=== PATIENT | female | born 2005 | race Caucasian/White ===

== ENCOUNTER 2023-02-23 17:21 | Inpatient (IN) | payer BC ==
[2023-02-23 18:05] LABS: Bilirubin Neg (Negative); Blood, Urine Negative (Negative); Clarity Clear (Clear); Glucose, Urine (Dipstick) Normal (Negative); Ketone, Urine Negative (Negative); Leukocyte 500 (Negative); Nitrite Negative (Negative); Protein, Urine (Dipstick) Negative (Neg-Trace); Urobilinogen Normal mg/dL (Less than 2)
[2023-02-23] MEDS ORDERED: Meclizine HCl 25 MG TAB ONE ×2 (18:05→18:56)
[2023-02-23 18:20] LABS: #Eosinphils 0.1 10x3/uL (0.0-0.5); #Monocytes 0.6 10x3/uL (0.0-1.1); #Neutrophils 4.5 10x3/uL (1.5-8.4); %Basophils 0.4 % (0.0-2.0); %Eosinophils 0.9 % (0.0-6.0); %Lymphocytes 35.2 % (18.0-47.0); %Monocytes 7.3 % (0.0-10.0); %Neutrophils 55.8 % (40.0-75.0); Hemoglobin 12.3 g/dL (12.0-15.5); Mean Corpuscular HGB CONC 33.2 g/dL (32.0-36.0); Mean Corpuscular Hemoglobin 25.7 pg (27.0-33.0); Mean Corpuscular Volume 77.4 fl (81.6-98.3); Mean Platelet Volume 10.3 fl (7.4-10.4); Platelet Count 337 10x3/uL (150-450); RBC Distribution Width 13.3 % (11.5-14.5); Red Blood Cell (RBC) Count 4.78 10x6/uL (3.90-5.03); White Blood Cell (WBC) Count 8.1 10x3/uL (3.5-10.5)
[2023-02-23 18:34] LABS: Bacteria/HPF 1+ HPF (None Seen); RBC/HPF 0-3 HPF (0-3)
[2023-02-23 18:42] LABS: ALT (SGPT) 16 U/L (8-55); AST (SGOT) 13 U/L (5-30); Alkaline Phosphatase 72 U/L (40-100); Anion Gap 13 mmol/L (10-20); BUN (Urea Nitrogen) 8 mg/dL (8.4-21.0); Bilirubin, Total 0.5 mg/dL (0.2-1.2); Calc. Creatinine Clearance 0 mL/min (70-130); Calcium 9.3 mg/dL (7.8-10.44); Carbon Dioxide 22 mmol/L (22-29); Chloride 105 mmol/L (98-107); Estimated GFR 123; Globulin 3.3 g/dL (2.4-3.5); Glucose 100 mg/dL (70-105); Lipase 20 U/L (8-78); Potassium 3.8 mmol/L (3.5-5.1); Protein, Total 7.3 g/dL (6.0-8.3); Sodium 136 mmol/L (136-145)
[2023-02-23] MEDS ORDERED: cefTRIAXone (ROCEPHIN) 1 GM VIAL ONE (18:42)
[2023-02-23 23:03] LABS: Magnesium 1.8 mg/dL (1.7-2.2)
[2023-02-23 23:24] VITALS: BMI 40.6
[2023-02-23 23:27] LABS: Troponin I Less than 0.010 ng/mL (< 0.028)
[2023-02-23] MEDS ORDERED: Progesterone,Micronized 100 MG CAP PO SCH (23:30)
[2023-02-24] MEDS ORDERED: NIFEdipine XL 30 MG TAB PO SCH (09:00)
[2023-02-24] MEDS: Prenatal Vitamin 1 TAB PO SCH (09:20)
[2023-02-24] MEDS: Sertraline 25 MG TAB PO SCH (09:21)
[2023-02-24] MEDS: Progesterone,Micronized 100 MG CAP PO SCH ×2 (09:21→20:26)
[2023-02-24] MEDS: Sodium Chloride 0.9% 1,000 ML IV SCH (13:27)
[2023-02-24] MEDS: cefTRIAXone\\ROCEPHIN 1 GM in Sodium Chloride 0.9% 100 ML IVPB SCH (17:48)
[2023-02-25 03:59] LABS: #Eosinphils 0.1 10x3/uL (0.0-0.5); #Monocytes 0.7 10x3/uL (0.0-1.1); #Neutrophils 3.6 10x3/uL (1.5-8.4); %Basophils 0.5 % (0.0-2.0); %Lymphocytes 46.1 % (18.0-47.0); %Monocytes 8.3 % (0.0-10.0); Hemoglobin 11.5 g/dL (12.0-15.5); Mean Corpuscular HGB CONC 32.7 g/dL (32.0-36.0); Mean Corpuscular Hemoglobin 25.8 pg (27.0-33.0); Mean Corpuscular Volume 78.9 fl (81.6-98.3); Mean Platelet Volume 10.3 fl (7.4-10.4); Platelet Count 321 10x3/uL (150-450); RBC Distribution Width 13.3 % (11.5-14.5); Red Blood Cell (RBC) Count 4.46 10x6/uL (3.90-5.03); White Blood Cell (WBC) Count 8.2 10x3/uL (3.5-10.5)
[2023-02-25 04:14] LABS: ALT (SGPT) 16 U/L (8-55); AST (SGOT) 11 U/L (5-30); Albumin 3.7 g/dL (3.5-5.0); Alkaline Phosphatase 72 U/L (40-100); Anion Gap 14 mmol/L (10-20); BUN (Urea Nitrogen) 7 mg/dL (8.4-21.0); Bilirubin, Total 0.4 mg/dL (0.2-1.2); Calc. Creatinine Clearance 173 mL/min (70-130); Calcium 9.2 mg/dL (7.8-10.44); Carbon Dioxide 22 mmol/L (22-29); Chloride 108 mmol/L (98-107); Estimated GFR 112; Glucose 87 mg/dL (70-105); Magnesium 1.8 mg/dL (1.7-2.2); Phosphorus 4.9 mg/dL (2.3-4.7); Potassium 4.5 mmol/L (3.5-5.1); Protein, Total 6.7 g/dL (6.0-8.3); Sodium 139 mmol/L (136-145)
[2023-02-25] MEDS: Sodium Chloride 0.9% 1,000 ML IV SCH ×4 (04:26→23:50)
[2023-02-25] MEDS: Prenatal Vitamin 1 TAB PO SCH (09:36)
[2023-02-25] MEDS: Sertraline 25 MG TAB PO SCH (09:36)
[2023-02-25] MEDS: Progesterone,Micronized 100 MG CAP PO SCH ×2 (09:36→21:25)
[2023-02-25] MEDS: cefTRIAXone\\ROCEPHIN 1 GM in Sodium Chloride 0.9% 100 ML IVPB SCH (18:35)
[2023-02-26 04:55] LABS: #Eosinphils 0.1 10x3/uL (0.0-0.5); #Monocytes 0.6 10x3/uL (0.0-1.1); #Neutrophils 4.1 10x3/uL (1.5-8.4); %Basophils 0.5 % (0.0-2.0); %Eosinophils 1.3 % (0.0-6.0); %Lymphocytes 42.5 % (18.0-47.0); %Monocytes 6.9 % (0.0-10.0); %Neutrophils 48.6 % (40.0-75.0); Hemoglobin 11.3 g/dL (12.0-15.5); Mean Corpuscular HGB CONC 32.9 g/dL (32.0-36.0); Mean Corpuscular Hemoglobin 25.8 pg (27.0-33.0); Mean Corpuscular Volume 78.3 fl (81.6-98.3); Mean Platelet Volume 10.3 fl (7.4-10.4); Platelet Count 327 10x3/uL (150-450); RBC Distribution Width 13.3 % (11.5-14.5); Red Blood Cell (RBC) Count 4.38 10x6/uL (3.90-5.03); White Blood Cell (WBC) Count 8.4 10x3/uL (3.5-10.5)
[2023-02-26 05:09] LABS: ALT (SGPT) 18 U/L (8-55); AST (SGOT) 16 U/L (5-30); Albumin 3.7 g/dL (3.5-5.0); Alkaline Phosphatase 65 U/L (40-100); Anion Gap 13 mmol/L (10-20); BUN (Urea Nitrogen) 6 mg/dL (8.4-21.0); Bilirubin, Total 0.5 mg/dL (0.2-1.2); Calc. Creatinine Clearance 193 mL/min (70-130); Calcium 8.9 mg/dL (7.8-10.44); Carbon Dioxide 21 mmol/L (22-29); Chloride 107 mmol/L (98-107); Estimated GFR 128; Globulin 2.9 g/dL (2.4-3.5); Glucose 81 mg/dL (70-105); Potassium 3.9 mmol/L (3.5-5.1); Protein, Total 6.6 g/dL (6.0-8.3); Sodium 137 mmol/L (136-145)
[2023-02-26] MEDS: Sodium Chloride 0.9% 1,000 ML IV SCH ×3 (05:14→21:01)
[2023-02-26] MEDS: Prenatal Vitamin 1 TAB PO SCH (09:00)
[2023-02-26] MEDS: Progesterone,Micronized 100 MG CAP PO SCH (09:00)
[2023-02-26] MEDS: Sertraline 25 MG TAB PO SCH (09:00)
[2023-02-26] MEDS ORDERED: Sodium Chloride 0.9% 1,000 ML IV SCH (14:15)
[2023-02-26] MEDS: cefTRIAXone\\ROCEPHIN 1 GM in Sodium Chloride 0.9% 100 ML IVPB SCH (18:15)
[2023-02-27 04:48] LABS: Anion Gap 13 mmol/L (10-20); BUN (Urea Nitrogen) 4 mg/dL (8.4-21.0); Calc. Creatinine Clearance 214 mL/min (70-130); Calcium 8.7 mg/dL (7.8-10.44); Carbon Dioxide 19 mmol/L (22-29); Chloride 108 mmol/L (98-107); Estimated GFR 131; Glucose 79 mg/dL (70-105); Potassium 3.5 mmol/L (3.5-5.1); Sodium 136 mmol/L (136-145)
[2023-02-27 04:59] LABS: #Eosinphils 0.1 10x3/uL (0.0-0.5); #Monocytes 0.7 10x3/uL (0.0-1.1); #Neutrophils 4.3 10x3/uL (1.5-8.4); %Basophils 0.5 % (0.0-2.0); %Eosinophils 0.7 % (0.0-6.0); %Lymphocytes 39.6 % (18.0-47.0); %Monocytes 8.5 % (0.0-10.0); %Neutrophils 50.5 % (40.0-75.0); Hemoglobin 10.8 g/dL (12.0-15.5); Mean Corpuscular Hemoglobin 25.7 pg (27.0-33.0); Mean Corpuscular Volume 77.7 fl (81.6-98.3); Mean Platelet Volume 10.6 fl (7.4-10.4); Platelet Count 294 10x3/uL (150-450); RBC Distribution Width 13.2 % (11.5-14.5); Red Blood Cell (RBC) Count 4.21 10x6/uL (3.90-5.03); White Blood Cell (WBC) Count 8.6 10x3/uL (3.5-10.5)
[2023-02-27] MEDS: Sertraline 25 MG TAB PO SCH (08:40)
[2023-02-27] MEDS: Sodium Chloride 0.9% 1,000 ML IV SCH (08:40)
[2023-02-27 12:17] VITALS: BP 103/59; TEMP 97.6
== END 2023-02-27 13:15 | disposition home or self-care (01) | DRG 832 ==
LOC: CSHERS 17:21 → CSHTELE 22:46 → INTOOBSV 22:46 → OBSVTOIN 02-26 11:33
PROVIDERS: ADMIT Family Medicine; ATTEND Physician Assistant Medical
DX: O99.411 Diseases of the circulatory system complicating pregnancy, first trimester (principal); N39.0 Urinary tract infection, site not specified; Z68.1 Body mass index [BMI] 19.9 or less, adult; O23.41 Unspecified infection of urinary tract in pregnancy, first trimester; I95.1 Orthostatic hypotension; I10 Essential (primary) hypertension; F41.1 Generalized anxiety disorder; O99.341 Other mental disorders complicating pregnancy, first trimester; Z90.89 Acquired absence of other organs; Z82.49 Family history of ischemic heart disease and other diseases of the circulatory system; Z91.09 Other allergy status, other than to drugs and biological substances; Z91.013 Allergy to seafood
CPT/HCPCS: 36415; 70551; 76856; 80048; 80053; 81003; 81015; 83690; 83735; 84100; 84484; 85025; 87040; 87086; 93005; 93010; 93306; 93880; 95816; 95819; 95957; 96361; 96374; 96376; G0378; J0696; J3490; J7050